=== PATIENT | female | born 1940 | race Caucasian/White ===

== ENCOUNTER 2022-10-06 09:38 | Outpatient (CLI) | payer MEDICARE, BC, SELFPAY ==
--- NOTE | 2022-10-06 10:00 | CRLHL7_ITS ---
For Patients: As a result of the Century Cures Act, medical imaging exams and procedure reports are released immediately into your electronic medical record. You may view this report before your referring provider. If you have questions, please contact your health care provider. Indication: MALIGNANT NEOPLASM OF LUNG Adenocarcinoma Technique: Routine noncontrast CT chest Please note that all CT scans at this facility use dose modulation, iterative reconstruction, and/or weight-based dosing when appropriate to reduce radiation dose to as low as reasonably achievable. Comparison: 04/14/2022 Findings: There is a new lobular nodule within the left upper lobe measuring 5.6 millimeters, 3/30. Stable calcified nodule within the lingula and left lower lobe. Stable peripheral nodule right lower lobe measuring 6.3 millimeters, 3/55. Stable posttherapy changes to the right upper lobe at the right lung apex. Stable calcified nodule right middle lobe. A developing nodule may be present within the right lower lobe measuring 3.4 millimeters, 3/59. Dependent areas of scarring. No pneumothorax. Vascular calcifications. Visualized thyroid is normal. No adenopathy. Upper abdomen unremarkable. No fracture. Multilevel degenerative changes. Impression: New pulmonary nodule within the left upper lobe measuring 5.6 millimeters. Possible additional developing nodule within the right lower lobe measuring 3.4 millimeters. Stable right lower lobe nodule peripherally measuring 6.3 millimeters. Stable post therapy changes to the right lung apex. No adenopathy. Please note that all CT scans at this facility use dose modulation, iterative reconstruction, and/or weight-based dosing when appropriate to reduce radiation dose to as low as reasonably achievable. Dictated by Bakari Lopez MD @ 10/07/2022 11:38:08 AM (Electronically Signed)
== END 2022-10-06 09:39 | disposition home or self-care (01) ==
PROVIDERS: Visit Provider Radiology Radiation Oncology
DX: C34.91 Malignant neoplasm of unspecified part of right bronchus or lung (principal)
CPT/HCPCS: 71250

== ENCOUNTER 2023-10-29 10:33 | Outpatient (CLI) | payer MEDICARE, BC, SELFPAY ==
--- NOTE | 2023-10-29 11:00 | CRLHL7_ITS ---
For Patients: As a result of the Century Cures Act, medical imaging exams and procedure reports are released immediately into your electronic medical record. You may view this report before your referring provider. If you have questions, please contact your health care provider. Indication: malignant neoplasm of lung follow-up Technique: CT Chest w/o Contrast Please note that all CT scans at this facility use dose modulation, iterative reconstruction, and/or weight-based dosing when appropriate to reduce radiation dose to as low as reasonably achievable. Comparison: 03/30/2023 Findings: Visualized thyroid normal. Atherosclerotic changes. No pleural or pericardial effusion. No splenomegaly. No adrenal nodule. No calcified gallstones. No hydronephrosis. Curvature of the spine. No adenopathy. Chronic changes to the right 2nd rib adjacent to pleural parenchymal densities. Stable 6 millimeter nodule right lower lobe. Dependent areas of scarring/atelectasis. Calcified granulomas are present bilaterally. Small nodules left upper lobe are decreased in conspicuity. Impression: Stable pleural parenchymal scarring in the right lung apex with associated stable nodular density and chronic deformity of the adjacent right 2nd rib. Stable smaller nodules elsewhere bilaterally. No adenopathy. Please note that all CT scans at this facility use dose modulation, iterative reconstruction, and/or weight-based dosing when appropriate to reduce radiation dose to as low as reasonably achievable. Dictated by Bakari Lopez MD @ 10/29/2023 1:31:32 PM (Electronically Signed)
== END 2023-10-29 10:34 | disposition home or self-care (01) ==
PROVIDERS: Visit Provider Radiology Radiation Oncology
DX: C34.91 Malignant neoplasm of unspecified part of right bronchus or lung (principal); R07.81 Pleurodynia
CPT/HCPCS: 71250

== ENCOUNTER 2024-08-04 09:38 | Outpatient (CLI) | payer MEDICARE, BC, SELFPAY ==
--- NOTE | 2024-08-04 10:00 | CRLHL7_ITS ---
For Patients: As a result of the Century Cures Act, medical imaging exams and procedure reports are released immediately into your electronic medical record. You may view this report before your referring provider. If you have questions, please contact your health care provider. Indication: MALIGNANT NEOPLASM OF RT LUNG ADENOCARCINOMA Technique: Noncontrast CT chest Please note that all CT scans at this facility use dose modulation, iterative reconstruction, and/or weight-based dosing when appropriate to reduce radiation dose to as low as reasonably achievable. Comparison: 10/29/2023, 03/30/2023, 10/06/2022 Findings: Stable 5.8 millimeter nodule right lower lobe is unchanged. Dependent areas of scarring/atelectasis in both lower lobes. Calcified granuloma within the left lower lobe and right middle lobe. No pleural effusion. Chronic density within the right lateral lung apex which appears more conglomerate in the interim, measuring up to 3.2 cm. Deformity of the right 2nd rib is present including nondisplaced fracture. No vertebral body compression fracture. Vascular calcifications. Upper abdomen unremarkable. Impression: There is some increased density of the right lateral lung apex extending to the pleura along with chronic deformity of the adjacent right 2nd rib. This likely represents evolving scar tissue/post therapy change. Stable right lower lobe pulmonary nodule. No adenopathy. Please note that all CT scans at this facility use dose modulation, iterative reconstruction, and/or weight-based dosing when appropriate to reduce radiation dose to as low as reasonably achievable. Dictated by Bakari Lopez MD @ 08/04/2024 12:43:07 PM (Electronically Signed)
== END 2024-08-04 09:39 | disposition home or self-care (01) ==
LOC: CT 09:39
PROVIDERS: Visit Provider Radiology Radiation Oncology
DX: C34.91 Malignant neoplasm of unspecified part of right bronchus or lung (principal)
CPT/HCPCS: 71250

== ENCOUNTER 2025-02-06 09:40 | Outpatient (CLI) | payer MEDICARE, BC, SELFPAY ==
--- NOTE | 2025-02-06 10:00 | CRLHL7_ITS ---
For Patients: As a result of the Century Cures Act, medical imaging exams and procedure reports are released immediately into your electronic medical record. You may view this report before your referring provider. If you have questions, please contact your health care provider. INDICATIONS: Malignant neoplasm of lung. Adenocarcinoma right. TECHNIQUE: CT chest without contrast. COMPARISON: CT chest 08/04/2024. FINDINGS: No pleural or pericardial effusions. No pathologic lymphadenopathy. Aortic atherosclerosis. Unenhanced thoracic aorta and main pulmonary arteries are normal in caliber. Coronary artery calcifications. Heart size is within normal limits. Soft tissues of the thoracic wall are unremarkable. No pneumothorax. Central airways are patent. Mild emphysema. Stable irregular masslike opacity in the periphery of the right upper lobe. Stable 6 mm peripheral right lower lobe nodule on image 58 of series 2. Additional subcentimeter nodules, including calcified granulomata are unchanged. No new suspicious nodule or acute airspace disease. Visualized upper abdomen is unremarkable. Degenerative changes of the spine. Stable altered morphology of the right lateral 2nd, 3rd and 4th ribs. No acute or suspicious osseous abnormality. IMPRESSION: Stable disease in the chest. Dictated by Carlyle Araiza MD @ 02/07/2025 8:40:32 AM Please note that all CT scans at this facility use dose modulation, iterative reconstruction, and/or weight-based dosing when appropriate to reduce radiation dose to as low as reasonably achievable. Dictated by: Carlyle Araiza MD @ 02/07/2025 08:40:49 (Electronically Signed)
== END 2025-02-06 09:41 | disposition home or self-care (01) ==
LOC: CT 09:43
PROVIDERS: Visit Provider Radiology Radiation Oncology
DX: C34.91 Malignant neoplasm of unspecified part of right bronchus or lung (principal)
CPT/HCPCS: 71250